=== PATIENT | male | born 1940 ===

== ENCOUNTER 2016-06-25 07:50 | Day surgery (SDC) | payer BC, MEDICARE ==
[~2016-06-25] VITALS: Ht 172.7 cm; Wt 95.3 kg
[2016-06-25] VITALS (10 sets, daily range): BP systolic 120–154; BP diastolic 68–88
--- NOTE | 2016-06-25 06:51 | Anethesia Preoperative Eval ---
Anesthesia Pre-op PMH/ROS General Date of Evaluation: June 25, 2016 Anesthesiologist: Adama ASA Score: ASA 3 Mallampati Score Class I : Soft palate, uvula, fauces, pillars visible Class II: Soft palate, uvula, fauces visible Class III: Soft palate, base of uvula visible Class IV: Only hard plate visible Mallampati Classification: Class III Surgeon: Brandon Diagnosis: Screening Surgical Procedure: EGD and colonoscopy Anesthesia History: none Family History: no anesthesia problems Allergies: Coded Allergies: No Known Allergies (Unverified , 06/24/16) Medications: see eMAR Past Medical History Cardiovascular: Reports: HTN, other - pacemaker , Denies: CAD, VA, arrhythmia, valve dz Pulmonary: 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 Exam Physician Exam see chart Constitutional: NAD Cardiovascular: RRR Respiratory: CTA Airway Exam Mallampati Score: Class III MO: full ROM: full Anesthesia Pre-op A/P Labs see chart Studies Pre-op Studies: EKG - sr Risk Assessment & Plan Assessment: ASA III Plan: MAC Status Change Before Surgery: No Pre-Antibiotics Drug: N/A SANIYA OLIVER M.D. June 25, 2016 06:51
[~2016-06-25 07:50] MED LIST: LR 1000ml 1,000 ML IVLG SCH
[2016-06-25] MEDS ORDERED: BP MED (08:28)
[2016-06-25] MEDS ORDERED: TAMSULOSIN HCL0.4 MG ORAL (08:28)
[2016-06-25] MEDS ORDERED: LR 1000ml 1,000 ML IVLG SCH (08:50)
[2016-06-25] MEDS ORDERED: DiphenhydrAMINE 50mg/ml Inj IVP PRN (09:00)
--- NOTE | 2016-06-25 09:50 | Short Stay Surgery H&P ---
History of Present Illness History of Present Illness Chief Complaint Screening colon and upper GI tract before kidney graft HPI Heri Sandoval is a 75 year old male who was admitted on for screening colon and upper GI tract before surgery for kidney transplant. Patient History Allergies: Coded Allergies: No Known Allergies (Unverified , 06/24/16) PAST MEDICAL HISTORY: Past Surgeries: (1) Hypertension (2) BPH (benign prostatic hyperplasia) (3) Coronary arteriosclerosis (4) Renal failure (5) Hyperuricemia (6) Gall stones Social History: Medication History Scheduled Tamsulosin Hcl (Tamsulosin Hcl*), 0.4 MG ORAL BEDTIME, (Reported) [Bp Med], Unknown Dose DAILY, (Reported) Review of Systems Cardiovascular: Reports: CAD - stable, hypertension, no symptoms Respiratory: Reports: no symptoms Skeletal: Reports: no symptoms Gastrointestinal: Reports: no symptoms Genitourinary: Reports: no symptoms, renal insufficiency Neurologic: Reports: no symptoms Endocrine: Reports: no symptoms Hematologic: Reports: no symptoms Physical Exam Vital Signs Last Vital Signs Date Time Temp Pulse Resp B/P Pulse Ox O2 Delivery O2 Flow Rate FiO2 06/25/16 08:10 98.3 75 18 154/82 94 Room Air Labs Laboratory Tests Test 06/25/16 08:30 Potassium Level 5.3 mEQ/L (3.4-4.9) H Skin: normal HENT: normal Heart: normal Lungs: normal Abdomen: normal Extremities: normal Genitourinary: normal Plan Plan of Care Upper and lower GI endoscopy. Preop Interventions None. Summary of Findings See the reports. Final Diagnosis: Attestation Are the patient's medical conditions optimized for surgery? Attestation Response: yes DANNY KIRKLAND June 25, 2016 09:50
--- NOTE | 2016-06-25 09:51 | Pre-Procedure Note/Attestation ---
Pre-Procedure Note/Attestation Complete Prior to Procedure Planned Procedure: left Procedure Narrative: Endoscopic exam of the GI tract before under going renal transplant. Indications for Procedure Pre-Operative Diagnosis: R/O colitis/polyps/ulcers. Attestation I attest that I discussed the nature of the procedure; its benefits; risks and complications; and alternatives (and the risks and benefits of such alternatives ), prior to the procedure, with the patient (or the patient's legal admitting representative). I attest that, if there was a reasonable possibility of needing a blood transfusion, the patient (or the patient's legal admitting representative) was given the [place] [employer] standardized written summary, pursuant to the [employer] Le Blood Safety Act ([place] Health and Safety Code # 1645, as amended). I attest that I re-evaluated the patient just prior to the surgery and that there has been no change in the patient's H&P, except as documented below: ISAEL,SAID June 25, 2016 09:51
[2016-06-25] MEDS ORDERED: NS 110ml ONE (10:00)
[2016-06-25] MEDS ORDERED: Lidocaine 1% MPF 10mg/ml 5ml ONE (10:00)
[2016-06-25] MEDS ORDERED: Propofol 10mg/ml 20ml IV ONE (10:00)
--- NOTE | 2016-06-25 10:32 | Endoscopy Procedure Note ---
Endoscopy Procedure Note Indication for Procedure: Screening for Upper and lower GI pathologies before renal transplant. Procedures Performed: EGD - 3mm submucosal antral lesion over anterior wall lessor curvature biopsied looked benign otherwise normal upper GI endoscopy with random gastric biopsy also done from mid-body of the stomach., colonoscopy - Extremely difficult procedure due lack of adequate prep and high redunancy of colon with findings of diverticulosis of colon and three mm pedunculated polyp in mid transverse that was removed with hot snare. Internal hemorrhoid and heprtrophic anal pappila. Specimen: yes Pt Tolerated Procedure Well: Yes Estimated Blood Loss: none Anesthesiologist: Dr. Camacho Anesthesia: moderate sedation Implant(s) used?: No 50 yrs or older w/o bx or poly: Yes 10yrs. F/U not recommended: Yes 10 yrs. F/U needed: Yes Med reason:<3 yrs.: System Reason:<3 yrs.: DANNY KIRKLAND June 25, 2016 10:32
--- NOTE | 2016-06-25 10:33 | Discharge Instructions ---
Discharge Instructions Discharge Instructions Follow up with: See the docotor in office next week and call for it before. For Congestive Heart Failure Reminder Report to your physician any weight gain of 5 pounds or more in one week. DANNY KIRKLAND June 25, 2016 10:33
--- NOTE | 2016-06-25 10:43 | Immediate Post-Op Evaluation ---
Immediate Post-Op Evalulation Immediate Post-Op Evalulation Procedure: EGD and colonoscopy Date of Evaluation: June 25, 2016 Time of Evaluation: 10:40 IV Fluids: 150 Blood Products: 0 Estimated Blood Loss: 0 Urinary Output: 0 Blood Pressure Systolic: 146 Blood Pressure Diastolic: 88 Pulse Rate: 78 Respiratory Rate: 17 O2 Sat by Pulse Oximetry: 98 Temperature (Fahrenheit): 98.4 Pain Score (1-10): 0 Nausea: No Vomiting: No Complications 0 Patient Status: awake, reacts, patent, none Hydration Status: adequate Drug: N/A SANIYA OLIVER M.D. June 25, 2016 10:43
--- NOTE | 2016-06-25 12:32 | 48 Hour Post Anesthesia Eval ---
Post Anesthesia Evaluation Procedure: EGD and colonoscopy Date of Evaluation: June 25, 2016 Time of Evaluation: 11:50 Blood Pressure Systolic: 121 0: 71 Pulse Rate: 85 Respiratory Rate: 18 Temperature (Fahrenheit): 97.5 O2 Sat by Pulse Oximetry: 93 Airway: patent Nausea: No Vomiting: No Pain Intensity: 0 Hydration Status: adequate Cardiopulmonary Status: at baseline Mental Status/LOC: patient returned to baseline Post-Anesthesia Complications: 0 Follow-up care needed: ready to discharge SANIYA OLIVER M.D. June 25, 2016 12:32
--- NOTE | 2016-06-25 17:59 | Operative Note - Dictated ---
DATE OF OPERATION: 06/25/2016 PROCEDURE: Preoperative total colonoscopic examination before upcoming renal transplant. PREOPERATIVE DIAGNOSES: Preoperative screening colonoscopy before upcoming the renal transplant. POSTOPERATIVE DIAGNOSIS: 1. Poor colonic preparation. 2. Diverticulosis of the colon. 3. Hypertrophic anal papilla and minimal internal hemorrhoids. 4. Incidental finding of 3 mm pedunculated polypoid lesions in mid transverse colon, which was removed with hot snare. Otherwise normal study up to the base of the cecum as examined. MEDICATION USED: Per Dr. Galan. INSTRUMENT: GIF Olympus video colonoscope. DESCRIPTION OF PROCEDURE: The patient after arriving endoscopy unit, was told about risks and benefits of the procedure, which he accepted and signed the informed consent. He was then put on the left lateral decubitus position. After adequate IV sedation, scope was gently passed, advanced into the anal area. There was evidence of a visible hypertrophic anal papilla of no great significance and then after performance of retroflexion maneuver in the rectum one could see evidence of minimal internal hemorrhoids, which were not friable. The rectum otherwise was completely normal and no pathology was found in this area except what is stated earlier. Unfortunately the colon cleanup was not adequate and there was significant amount of liquidy stool along the colon making the examination very difficult due to fact that also the applicant did have highly redundant left colon. During this procedure multiple diverticular lesions, mostly found on the left colon of no great significance. However there was no any evidence of pathology, stricture, polyps, or major tumors etc. Upon passage of the scope towards the splenic flexure it was gradually guided and the scope was guided into the transverse colon by placing the patient on his dorsal position. Incidental finding with evidence of 3 millimeter pedunculated polypoid lesion, which looked completely benign and nonulcerated. It was grabbed subsequently with a hot snare and totally removed and the specimen was sent to the pathology lab. At this point, the scope was gradually advanced toward the hepatic flexure guided into the right colon all the way to the base of the cecum. All these areas also remained to be completely normal. As I mentioned, due to lack of adequate preparation of the colon one could not rule out any evidence of any other diminutive polypoid lesion at this time. However there was no any other gross pathology other than what I stated earlier. Within 6 to 8 minutes, the scope was gradually pulled out and further evaluation of the colon with multiple irrigation did not reveal any other pathology. The patient tolerated the procedure well and left the endoscopy room in good condition. Said Mary Taylor DR: Ludmila JOB#: [id number] CC:
--- NOTE | 2016-06-25 18:08 | Procedure Note ---
DATE OF PROCEDURE: 06/25/2016 PROCEDURE: Esophagogastroduodenoscopy with biopsy. SURGEON: Og Taylor M.D. PREOPERATIVE DIAGNOSIS: Upper gastrointestinal endoscopic evaluation before upcoming renal transplant. POSTOPERATIVE DIAGNOSES: 1. A 3 mm benign looking submucosal nodular lesions over the lesser curvature anterior wall of the antrum, which was biopsied, looks benign. 2. Random biopsy was obtained from gastric body, otherwise, normal upper GI endoscopy. MEDICATION USED: Dr. Galan. INSTRUMENT: GIF Olympus upper GI video endoscope. DESCRIPTION OF PROCEDURE: The patient was referred for evaluation of the upper GI tract through the endoscopy for undergoing the upcoming renal transplant. The patient, after being told about risks and benefits of the procedure, signed the informed consent and was put on the left lateral decubitus position. Adequate IV sedation was given through the anesthesiologist and subsequently, the endoscope was gently passed through the cricopharyngeal area, was lodged into the upper esophagus, and gradually advanced towards gastroesophageal junction. The entire length of the esophagus looked normal. No evidence of varices, inflammatory process, ulceration, stricture, exudative process, etc., was found. GE junction also looked completely normal. No evidence of hiatal hernia or Ca's. The scope was then guided into the stomach and after adequate insufflation of air in the gastric cavity, gradually the areas of the fundus and the body and the antrum were examined in an surgical brace maker fashion. The gastric mucosa was completely within normal limits without any evidence of gastritis, ulceration, polyps, or tumors; however, there was evidence of a 3 mm submucosal lesion over the anterior wall of the lesser curvature of the antral area, which looked benign and it was biopsied multiple. The scope was subsequently passed through the pylorus. First and second portion of duodenum were found to be completely normal. At this time, the scope was pulled back into the stomach. One random biopsy from gastric body obtained. Subsequently, the procedure was terminated. The patient tolerated the procedure well. Og Taylor M.D. DR: WILL JOB#: [id number] CC:
== END 2016-06-25 11:55 | disposition home or self-care (01) ==
LOC: GAS 07:50
DX: Z01.818 Encounter for other preprocedural examination (principal); Z76.82 Awaiting organ transplant status; E75.5 Other lipid storage disorders; K21.9 Gastro-esophageal reflux disease without esophagitis; K64.8 Other hemorrhoids; D12.3 Benign neoplasm of transverse colon; K62.89 Other specified diseases of anus and rectum; K57.30 Diverticulosis of large intestine without perforation or abscess without bleeding; Q43.8 Other specified congenital malformations of intestine; I12.0 Hypertensive chronic kidney disease with stage 5 chronic kidney disease or end stage renal disease; N18.6 End stage renal disease; I25.10 Atherosclerotic heart disease of native coronary artery without angina pectoris; N40.0 Benign prostatic hyperplasia without lower urinary tract symptoms; G47.33 Obstructive sleep apnea (adult) (pediatric); E79.0 Hyperuricemia without signs of inflammatory arthritis and tophaceous disease; D64.9 Anemia, unspecified; M19.90 Unspecified osteoarthritis, unspecified site; E66.9 Obesity, unspecified; Z95.0 Presence of cardiac pacemaker
CPT/HCPCS: 36415; 43239; 45385; 84132; J2704; 94003; 94150